=== PATIENT | male | born 1970 | race Two or more races ===

== ENCOUNTER 2019-06-01 11:52 | Emergency (ER) | payer OTHER ==
[~2019-06-01] VITALS: Ht 170.2 cm; Wt 80.3 kg
[2019-06-01] MEDS ORDERED: KETOROLAC 30 MG/ML VIAL. IV ONE (12:30)
[2019-06-01] MEDS ORDERED: FAMOTIDINE 20 MG/2 ML VIAL IVP ONE (12:30)
[2019-06-01 12:58] LABS: BASO % 0 % (0-3); EOS % 0 % (0-3); HEMATOCRIT 48.4 % (39.0-53.0); HEMOGLOBIN 16.6 g/dL (13.0-17.5); LYMPH % 24 % (24-48); MEAN CORPUSCULAR HEMOGLOBIN 30 pg (25-35); MEAN CORPUSCULAR HGB CONC 34 g/dL (31-37); MEAN CORPUSCULAR VOLUME 88 fL (79-100); MONO # 0.3 x10^3/uL (0.0-1.1); MONO % 6 % (0-9); NEUT # 2.9 x10^3/uL (1.8-7.7); NEUT % 69 % (31-73); PLATELET COUNT 256 x10^3/uL (140-400); RED BLOOD COUNT 5.49 x10^6/uL (4.30-5.70); RED CELL DISTRIBUTION WIDTH 13.1 % (11.5-14.5); WHITE BLOOD COUNT 4.2 x10^3/uL (4.0-11.0)
[2019-06-01 12:59] LABS: BILIRUBIN,URINE NEGATIVE (NEG); CLARITY,URINE CLEAR; COLOR,URINE YELLOW; NITRITE,URINE NEGATIVE (NEG); PH,URINE 6.5; PROTEIN,URINE NEGATIVE (NEG-TRACE); UROBILINOGEN,URINE 0.2 mg/dL (0.2 mg/dL)
[2019-06-01 13:06] LABS: BARBITURATES NEG (NEG); BENZODIAZEPINES NEG (NEG); CANNABINOIDS NEG (NEG); COCAINE NEG (NEG); METHADONE NEG (NEG); OPIATES NEG (NEG); PHENCYCLIDINE NEG (NEG)
[2019-06-01 13:07] LABS: AMPHETAMINE/METHAMPHETAMINE NEG (NEG)
[2019-06-01 13:08] LABS: CALCIUM 9.2 mg/dL (8.5-10.1); CREATININE 0.9 mg/dL (0.7-1.3); GFR 90.1; POTASSIUM 3.7 mmol/L (3.5-5.1)
[2019-06-01 13:14] LABS: ALBUMIN 4.3 g/dL (3.4-5.0); ALBUMIN/GLOBULIN RATIO 1.3 (1.0-1.7); TOTAL BILIRUBIN 0.6 mg/dL (0.2-1.0); TOTAL PROTEIN 7.5 g/dL (6.4-8.2)
--- NOTE | 2019-06-01 13:14 | RAD ---
Examination: ABDOMEN LTD History: Upper abdominal pain Comparison/Correlation: None Findings: Right upper quadrant ultrasound exam was performed. Gallbladder is normal. No cholelithiasis or findings of cholecystitis. Common bile duct measures up to 0.5 cm diameter. Fatty infiltration of liver noted. Pancreas is not well visualized. Inferior vena cava is unremarkable. Right kidney measures 10.4 cm x 4.9 cm x 5.2 cm. No right hydronephrosis or nephrolithiasis. No right upper quadrant ascites. Portal venous flow is unremarkable. Impression: Fatty infiltration liver. No acute process. Electronically signed by: Washington Alegria MD (06/01/2019 1:11 PM) [facility]
[2019-06-01 13:23] LABS: SQUAMOUS EPITHELIAL CELL,UR OCC /LPF
[2019-06-01 13:24] LABS: BACTERIA,URINE 0 /HPF (0-FEW); RBC,URINE 0 /HPF (0-2); WBC,URINE OCC /HPF (0-4)
[2019-06-01 14:39] VITALS: BP 153/69
[2019-06-01] MEDS ORDERED: TRAM-48 PO (14:39)
[2019-06-01] MEDS ORDERED: RANI-376 PO (14:39)
--- NOTE | 2019-06-01 14:40 | PHYS DOC ---
Past Medical History Past Medical History: No Pertinent History Past Surgical History: Other Additional Past Surgical Histo: RIGHT ARM FRACTURE REPAIR Alcohol Use: None Drug Use: None Adult General Chief Complaint Chief Complaint: ABDOMINAL PAIN [facility] HPI Patient is a 48 year old Guamanian speaking male who presents with complaining of abdominal pain. 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 Patient complaining of intermittent episodes of periumbilical upper abdominal pain for 1 week that usually happen after eating as an aching pain without radiation. Patient denies nausea, vomiting, diarrhea, constipation, urinary problems, fever and chills, chest pain. Patient states he took Naprosyn without improvement of his pain. Patient rated his pain 8/10 at arrival to ER. Patient did not seek medical attention for this problem previously. Review of Systems Review of Systems Constitutional: Denies fever or chills [] Eyes: Denies change in visual acuity, redness, or eye pain [] HENT: Denies nasal congestion or sore throat [] Respiratory: Denies cough or shortness of breath [] Cardiovascular: No additional information not addressed in HPI [] GI: Reports abdominal pain, denies nausea, vomiting, bloody stools or diarrhea [] : Denies dysuria or hematuria [] Musculoskeletal: Denies back pain or joint pain [] Integument: Denies rash or skin lesions [] Neurologic: Denies headache, focal weakness or sensory changes [] Endocrine: Denies polyuria or polydipsia [] All other systems were reviewed and found to be within normal limits, except as documented in this note. Current Medications Current Medications Current Medications Medications (Trade) Dose Ordered Sig/[facility] Start Time Stop Time Status Last Admin Dose Admin Famotidine (Pepcid Vial) 20 mg 1X ONCE 06/01/19 12:30 06/01/19 12:32 DC 06/01/19 13:05 20 MG Ketorolac Tromethamine (Toradol 30mg Vial) 30 mg 1X ONCE 06/01/19 12:30 06/01/19 12:32 DC 06/01/19 13:05 30 MG Allergies Allergies Allergies Coded Allergies Type Severity Reaction Last Updated Verified No Known Drug Allergies 11/22/13 No Physical Exam Physical Exam Constitutional: Well developed, well nourished, mild distress, non-toxic appearance. [] HENT: Normocephalic, atraumatic. Eyes: PERRLA, EOMI, conjunctiva normal, no discharge. [] Neck: Normal range of motion, no tenderness, supple, no stridor. [] Cardiovascular:Heart rate regular rhythm, no murmur [] Lungs & Thorax: Bilateral breath sounds clear to auscultation [] Abdomen: Bowel sounds normal, soft, no tenderness, no masses, no pulsatile masses. [] Skin: Warm, dry, no erythema, no rash. [] Back: No tenderness, no CVA tenderness. [] Extremities: No tenderness, no cyanosis, no clubbing, ROM intact, no edema. [] Neurologic: Alert and oriented X 3, no focal deficits noted. [] Psychologic: Affect normal, judgement normal, mood normal. [] Current Patient Data Vital Signs Vital Signs Date Time Temp Pulse Resp B/P (MAP) Pulse Ox O2 Delivery O2 Flow Rate FiO2 06/01/19 12:03 98.2 81 26 190/100 (130) 98 Room Air 98.2 Lab Values Laboratory Tests Test 06/01/19 12:06 White Blood Count 4.2 x10^3/uL (4.0-11.0) Red Blood Count 5.49 x10^6/uL (4.30-5.70) Hemoglobin 16.6 g/dL (13.0-17.5) Hematocrit 48.4 % (39.0-53.0) Mean Corpuscular Volume 88 fL (79-100) Mean Corpuscular Hemoglobin 30 pg (25-35) Mean Corpuscular Hemoglobin Concent 34 g/dL (31-37) Red Cell Distribution Width 13.1 % (11.5-14.5) Platelet Count 256 x10^3/uL (140-400) Neutrophils (%) (Auto) 69 % (31-73) Lymphocytes (%) (Auto) 24 % (24-48) Monocytes (%) (Auto) 6 % (0-9) Eosinophils (%) (Auto) 0 % (0-3) Basophils (%) (Auto) 0 % (0-3) Neutrophils # (Auto) 2.9 x10^3/uL (1.8-7.7) Lymphocytes # (Auto) 1.0 x10^3/uL (1.0-4.8) Monocytes # (Auto) 0.3 x10^3/uL (0.0-1.1) Eosinophils # (Auto) 0.0 x10^3/uL (0.0-0.7) Basophils # (Auto) 0.0 x10^3/uL (0.0-0.2) Urine Collection Type Unknown Urine Color Yellow Urine Clarity Clear Urine pH 6.5 Urine Specific [place] 1.015 Urine Protein Negative mg/dL (NEG-TRACE) Urine Glucose (UA) Negative mg/dL (NEG) Urine Ketones (Stick) Negative mg/dL (NEG) Urine Blood Negative (NEG) Urine Nitrite Negative (NEG) Urine Bilirubin Negative (NEG) Urine Urobilinogen Dipstick 0.2 mg/dL (0.2 mg/dL) Urine Leukocyte Esterase Small (NEG) Urine RBC 0 /HPF (0-2) Urine WBC Occ /HPF (0-4) Urine Squamous Epithelial Cells Occ /LPF Urine Bacteria 0 /HPF (0-FEW) Urine Mucus Slight /LPF Sodium Level 143 mmol/L (136-145) Potassium Level 3.7 mmol/L (3.5-5.1) Chloride Level 106 mmol/L (98-107) Carbon Dioxide Level 29 mmol/L (21-32) Anion Gap 8 (6-14) Blood Urea Nitrogen 12 mg/dL (8-26) Creatinine 0.9 mg/dL (0.7-1.3) Estimated GFR (Cockcroft-Gault) 90.1 BUN/Creatinine Ratio 13 (6-20) Glucose Level 116 mg/dL (70-99) H Calcium Level 9.2 mg/dL (8.5-10.1) Total Bilirubin 0.6 mg/dL (0.2-1.0) Aspartate Amino Transferase (AST) 22 U/L (15-37) Alanine Aminotransferase (ALT) 37 U/L (16-63) Alkaline Phosphatase 111 U/L (46-116) Total Protein 7.5 g/dL (6.4-8.2) Albumin 4.3 g/dL (3.4-5.0) Albumin/Globulin Ratio 1.3 (1.0-1.7) Lipase 158 U/L (73-393) Urine Opiates Screen Neg (NEG) Urine Methadone Screen Neg (NEG) Urine Barbiturates Neg (NEG) Urine Phencyclidine Screen Neg (NEG) Urine Amphetamine/Methamphetamine Neg (NEG) Urine Benzodiazepines Screen Neg (NEG) Urine Cocaine Screen Neg (NEG) Urine Cannabinoids Screen Neg (NEG) Urine Ethyl Alcohol Neg (NEG) Laboratory Tests 06/01/19 12:06 Laboratory Tests 06/01/19 12:06 EKG EKG [] Radiology/Procedures Radiology/Procedures [][facility] [address] [place] [address] IMAGING REPORT Signed PATIENT: JASON GALEANAUNT: [id number] : 1970 LOCATION: ER AGE: 48 SEX: M EXAM STATUS: REG ER ORD. PHYSICIAN: DARREN WILKERSON MD REASON: upper abdominal pain PROCEDURE: ABDOMEN LTD Examination: ABDOMEN LTD History: Upper abdominal pain Comparison/Correlation: None Findings: Right upper quadrant ultrasound exam was performed. Gallbladder is normal. No cholelithiasis or findings of cholecystitis. Common bile duct measures up to 0.5 cm diameter. Fatty infiltration of liver noted. Pancreas is not well visualized. Inferior vena cava is unremarkable. Right kidney measures 10.4 cm x 4.9 cm x 5.2 cm. No right hydronephrosis or nephrolithiasis. No right upper quadrant ascites. Portal venous flow is unremarkable. Impression: Fatty infiltration liver. No acute process. Electronically signed by: Washington Todd MD (06/01/2019 1:11 PM) [facility] DICTATED and SIGNED BY: WASHINGTON TODD MD DATE: 06/01/19 1311 Course & Med Decision Making Course & Med Decision Making Pertinent Labs and Imaging studies reviewed. (See chart for details) Evaluation of patient in ER showed 48-year-old male patient with complaining of intermittent episodes of abdominal pain that getting worse after eating and lasts for about 5 minutes. Patient had unremarkable physical exam and labs and ultrasound of gallbladder except for fatty liver. Patient treated with Jacox and felt better. Patient had blood sugar of 195/100 at arrival to ER without history of hypertension and was advised to record his blood pressure and follow up with primary care physician. I've spoken with the patient and/or caregivers. I've explained the patient's condition, diagnosis and treatment plan based on information available to me at this time. I've answered the patient's and/or caregivers questions and addressed any concerns. The patient and/or caregivers have a good understanding the patient's diagnosis, condition and treatment plan as can be expected at this point. Vital signs have been stabilized. The patient's condition is stable for discharge from the emergency department. The patient will pursue further outpatient evaluation with her primary care provider or other designated consulting physician as outlined in the discharge instructions. Patient and/or caregivers are agreeable to this plan of care and follow-up instructions have been explained in detail. The patient and/or caregivers have received these instructions in written format and expressed understanding of these discharge instructions. The patient and her caregivers are aware that if any significant change in condition or worsening of symptoms should prompt him to immediately return to this of the closest emergency dep artment. If an emergent department is not readily available I would encourage him to call 911. [place] Disclaimer Dragon Disclaimer This electronic medical record was generated, in whole or in part, using a voice recognition dictation system. Departure Departure Impression: Primary Impression: GERD (gastroesophageal reflux disease) Additional Impression: Elevated blood pressure reading without diagnosis of hypertension Disposition: HOME, SELF-CARE (at 1435) Condition: IMPROVED Referrals: CORTNEY SCHUSTER (PCP) Patient Instructions: Diet for Gastroesophageal Reflux Disease, Adult, Form - Blood Pressure Record Sheet, Gastroesophageal Reflux Disease, Adult, How to Take Your Blood Pressure, [id number], Managing Your High Blood Pressure Additional Instructions: Follow-up with your primary care physician in 3-5 days Return to ER if not getting better Scripts Tramadol Hcl (ULTRAM) 50 Mg Tablet 50 MG PO Q6HRS PRN for PAIN, #14 TAB 0 Refills Prov: DARREN WILKERSON MD 06/01/19 Ranitidine Hcl (ZANTAC) 150 Mg Tablet 1 TAB PO BID for dyspepsia, #30 TAB 0 Refills Prov: DARREN WILKERSON MD 06/01/19 Problem Qualifiers Primary Impression: GERD (gastroesophageal reflux disease) Esophagitis presence: without esophagitis Qualified Codes: K21.9 - Gastro- esophageal reflux disease without esophagitis DARREN WILKERSON MD Jun 01, 2019 14:40
--- NOTE | 2019-06-04 09:20 | EKG ---
[facility] [address] [place] [address] Test Date: 2019-06-01 Test Time: 12:18:37 Pat Name: MARE GALEANA Department: Room: Gender: M Court Reporter: : 1970 Requested By: DARREN WILKERSON Order Number: [id number] Reading MD: Measurements Intervals [place] Rate: 77 P: 28 [place]: 162 QRS: -12 QRSD: 86 T: 4 QT: 358 QTc: 406 Interpretive Statements SINUS RHYTHM LEFTWARD AXIS NON SPECIFIC T ABNORMALITY BORDERLINE ECG No previous ECG available for comparison
== END 2019-06-01 14:52 | disposition home or self-care (01) ==
LOC: ER 11:52
DX: K21.9 Gastro-esophageal reflux disease without esophagitis (principal); R03.0 Elevated blood-pressure reading, without diagnosis of hypertension
CPT/HCPCS: 36415; 76705; 80053; 80307; 81001; 83690; 85025; 87086; 93005; 96374; 96375; 99285; J1885; J3490

== ENCOUNTER 2021-08-27 11:44 | Emergency (ER) | payer OTHER ==
[~2021-08-27] VITALS: Ht 162.6 cm; Wt 84.0 kg
[~2021-08-27 11:44] MED LIST: RANI-376 PO; TRAM-48 PO
[2021-08-27] MEDS ORDERED: FAMOTIDINE 20 MG/2 ML VIAL IVP ONE (13:30)
[2021-08-27] MEDS ORDERED: IV NORMAL SALINE 1000ML BAG 1,000 ML IV ONE (13:30)
--- NOTE | 2021-08-27 13:34 | PHYS DOC ---
Past Medical History Past Medical History: No Pertinent History Past Surgical History: Other Additional Past Surgical Histo: RIGHT ARM FRACTURE REPAIR Smoking Status: Never Smoker Alcohol Use: Occasionally Drug Use: None General Adult EDM: Chief Complaint: ABDOMINAL PAIN HPI: HPI: 50 year old male presents with abdominal pain that has been progressively worsening over the past week. He reports that occasionally his stomach feels swollen with associated fever, headache, chills, and burning chest pain. He reports that eating makes the swelling worse, especially coffee and potatoes/chilli. He has not had any changes in bowel habit or blood in his stool. Review of Systems: Review of Systems: Constitutional: Reports fever. Denies chills Eyes: Denies redness or eye pain HENT: Denies nasal congestion or sore throat Respiratory: Denies cough or shortness of breath Cardiovascular: Denies chest pain or palpitations GI: Reports abdominal pain and nausea. Denies vomiting : Denies dysuria or hematuria Musculoskeletal: Denies back pain or joint pain Integument: Denies rash or skin lesions Neurologic: Reports headache. Denies focal weakness or sensory changes Complete systems were reviewed and found to be within normal limits, except as documented in this note. Heart Score: C/O Chest Pain: N/A Allergies: Allergies: Allergies Coded Allergies Type Severity Reaction Last Updated Verified No Known Drug Allergies 11/22/13 No Physical Exam: PE: Constitutional: Well developed, well nourished, no acute distress, non-toxic appearance HENT: Normocephalic, atraumatic Eyes: Conjunctiva normal, no discharge Neck: Normal range of motion, no tenderness, supple Lungs & Thorax: No respiratory distress, equal chest rise and fall. Clear to auscultation bilaterally. Cardiovascular: RRR with no murmurs appreciated. Abdomen: Mild abdominal distension with mild tenderness to palpation in the epigastric region. No guarding or rebound tendereness. Skin: Warm, dry, no erythema, no rash Extremities: No tenderness, ROM intact, no edema Neurologic: Alert and oriented X 3, normal motor function, normal sensory function, no focal deficits noted Psychologic: Affect normal, judgment normal EKG: EKG: @ 1:58 pm, NSR at 68 bpm, left axis deviation, QRS(T) contour abnormality, QRS 86 ms, QT/QTc 346/372.[] Radiology/Procedures: Radiology/Procedures: CT abdomen and pelvis with contrast PQRS statement: CT scans at this facility use dose reduction including either automated exposure control, iterative reconstructions, and /or weight based radiation dosing via mA and kV modification when appropriate to reduce radiation dose to as low as reasonably achievable. Contrast: 75 mL Omnipaque 300 intravenous contrast HISTORY: Upper abdominal pain. Abdomen findings: Lung bases are unremarkable. Lower lumbar disc disease with disc height loss and disc bulges and anterior disc osteophytes with spinal canal and neural foraminal stenoses. Kidneys, adrenals, pancreas, spleen, liver and gallbladder are unremarkable. No abdominal fluid or adenopathy. Appendix is negative. No obstruction or inflammation the GI tract. At the right posterior lateral lower chest wall there is a 6 x 1 cm fatty density lesion along the rib cage image 10 statistically most likely a lipoma. Pelvis findings: Bladder, prostate, rectum and bones are unremarkable. No pelvic fluid or adenopathy. Bilateral hip osteoarthritis. IMPRESSION: No acute process. The appendix is negative. Incidental findings described above. Electronically signed by: Jordi Pathak MD (08/27/2021 3:20 PM) [facility] Course & Med Decision Making: Course & Med Decision Making Pertinent Labs and Imaging studies reviewed. (See chart for details) 50 year old male presented to the emergency department for abdominal pain. IV access was acquired and he was given a liter of fluids. Pepcid was administered to help with his burning abdominal pain. To rule out cardiac pathology an EKG and heart enzymes were acquired and negative. A lipase and CT abdomen/pelvis were ordered to evaluate for other abdominal inflammation/pathology and did not reveal any significant findings. Patient stable for discharge with outpatient follow-up with PCP. Discussed findings and plan with patient, who acknowledges understanding and agreement. Dragon Disclaimer: [place] Disclaimer: This electronic medical record was generated, in whole or in part, using a voice recognition dictation system. Departure Departure Impression: Primary Impression: Abdominal pain Qualified Codes: R10.13 - Epigastric pain Disposition: HOME / SELF CARE / HOMELESS Condition: STABLE Referrals: CORTNEY SCHUSTER (PCP) SOFIA MONTOYA MD Patient Instructions: Abdominal Pain, Gastritis, Adult, [id number] Scripts Famotidine (PEPCID) 20 Mg Tablet 20 MG PO BID, #20 TAB Prov: LYNN MARTINES DO 08/27/21 LYNN MARTINES DO Aug 27, 2021 13:34
[2021-08-27 14:04] LABS: BASO % 1 % (0-3); EOS # 0.1 x10^3/uL (0.0-0.7); EOS % 2 % (0-3); HEMOGLOBIN 16.8 g/dL (13.0-17.5); LYMPH # 1.3 x10^3/uL (1.0-4.8); LYMPH % 28 % (24-48); MEAN CORPUSCULAR HEMOGLOBIN 31 pg (25-35); MEAN CORPUSCULAR HGB CONC 34 g/dL (31-37); MEAN CORPUSCULAR VOLUME 90 fL (79-100); MONO # 0.5 x10^3/uL (0.0-1.1); MONO % 11 % (0-9); NEUT # 2.6 x10^3/uL (1.8-7.7); NEUT % 58 % (31-73); PLATELET COUNT 241 x10^3/uL (140-400); RED BLOOD COUNT 5.47 x10^6/uL (4.30-5.70); RED CELL DISTRIBUTION WIDTH 13.1 % (11.5-14.5); WHITE BLOOD COUNT 4.5 x10^3/uL (4.0-11.0)
[2021-08-27 14:13] LABS: BILIRUBIN,URINE NEGATIVE (NEG); CLARITY,URINE CLOUDY; COLOR,URINE YELLOW; NITRITE,URINE NEGATIVE (NEG); PH,URINE 7.5 (<5.0-8.0); PROTEIN,URINE NEGATIVE (NEG-TRACE); UROBILINOGEN,URINE 0.2 mg/dL (0.2 mg/dL)
[2021-08-27 14:20] LABS: RBC,URINE 0 /HPF (0-2); WBC,URINE OCC /HPF (0-4)
[2021-08-27 14:21] LABS: AMORPHOUS SEDIMENT,UR PRESENT /HPF
[2021-08-27 14:23] LABS: CALCIUM 9.1 mg/dL (8.5-10.1); CREATININE 0.9 mg/dL (0.7-1.3); GFR 89.3; POTASSIUM 3.8 mmol/L (3.5-5.1)
[2021-08-27 14:29] LABS: ALBUMIN 3.7 g/dL (3.4-5.0); ALBUMIN/GLOBULIN RATIO 1.3 (1.0-1.7); MAGNESIUM 2.3 mg/dL (1.8-2.4); TOTAL BILIRUBIN 0.3 mg/dL (0.2-1.0); TOTAL PROTEIN 6.6 g/dL (6.4-8.2)
[2021-08-27 14:38] LABS: CREATINE KINASE 65 U/L (39-308)
[2021-08-27] MEDS ORDERED: IOHEXOL 300 MG/ML 100ML VIAL. IV ONE (15:00)
[2021-08-27] MEDS ORDERED: CONTRAST GIVEN. MC PRN (15:15)
--- NOTE | 2021-08-27 15:22 | RAD ---
CT abdomen and pelvis with contrast PQRS statement: CT scans at this facility use dose reduction including either automated exposure cont rol, iterative reconstructions, and /or weight based radiation dosing via mA and kV modification when appropriate to reduce radiation dose to as low as reasonably achievable. Contrast: 75 mL Omnipaque 300 intravenous contrast HISTORY: Upper abdominal pain. Abdomen findings: Lung bases are unremarkable. Lower lumbar disc disease with disc height loss and di sc bulges and anterior disc osteophytes with spinal canal and neural foraminal stenoses. Kidneys, adr enals, pancreas, spleen, liver and gallbladder are unremarkable. No abdominal fluid or adenopathy. Ap pendix is negative. No obstruction or inflammation the GI tract. At the right posterior lateral lower chest wall there is a 6 x 1 cm fatty density lesion along the rib cage image 10 statistically most l ikely a lipoma. Pelvis findings: Bladder, prostate, rectum and bones are unremarkable. No pelvic fluid or adenopathy. Bilateral hip osteoarthritis. IMPRESSION: No acute process. The appendix is negative. Incidental findings described above. Electronically signed by: Jordi Pathak MD (08/27/2021 3:20 PM) [facility]
[2021-08-27] MEDS ORDERED: FAMO-63 PO (16:08)
[2021-08-27 16:10] VITALS: BP 170/105
--- NOTE | 2021-08-27 17:21 | EKG ---
[facility] [address] [place] [address] Test Date: 2021-08-27 Test Time: 13:50:03 Pat Name: MARE GALEANA Department: Room: Gender: M Media Professional: : 1970 Requested By: LYNN MARTINES Order Number: [id number] Reading MD: Kings Gomez Measurements Intervals [place] Rate: 68 P: 38 [place]: 164 QRS: -9 QRSD: 86 T: 12 QT: 346 QTc: 372 Interpretive Statements SINUS RHYTHM LEFTWARD AXIS MILD NONSPECIFIC ST T WAVE CHANGES Electronically Signed On 08-30-2021 10:11:11 CONTINUOUS STILL OPERATOR by Kings Gomez
== END 2021-08-27 16:20 | disposition home or self-care (01) ==
LOC: ER 11:44
DX: R10.13 Epigastric pain (principal); R51.9 Headache, unspecified; R07.89 Other chest pain; R50.9 Fever, unspecified
CPT/HCPCS: 36415; 74177; 80053; 81001; 82553; 83690; 83735; 84484; 85025; 93005; 96361; 96374; 99285; J3490; J7030